=== PATIENT | male | born 1975 | race Caucasian/White ===

== ENCOUNTER → 2018-02-04 | Outpatient (CLI) | payer OTHER | END | disposition home or self-care (01) | LOC: KCIC US 12:47 | DX: H54.7 Unspecified visual loss (principal); I10 Essential (primary) hypertension; Z87.891 Personal history of nicotine dependence | CPT/HCPCS: 93880 ==

== ENCOUNTER → 2018-07-28 | Outpatient (CLI) | payer OTHER ==
--- NOTE | 2018-07-28 12:00 | RAD ---
Right ankle, 2 views, 07/28/2018: HISTORY: Ankle injury Two surgical screws are present in the calcaneus, presumably traversing a old healed fracture. There is patchy bony demineralization. Mild spurring is present at the ankle joint and at the mid foot level. No acute fracture or dislocation is identified. There is mild subcutaneous edema. IMPRESSION: 1. Previous calcaneal surgery. 2. Mild degenerative change. 3. No acute bony abnormality is detected. Lumbar spine, 3 views, 07/28/2018: HISTORY: Back pain There is a mild left convexity lumbar scoliosis. The lumbar vertebral heights are well-maintained. There is mild disc space narrowing at multiple levels with mild scattered marginal spurs. There are mild degenerative changes involving the facet joints in the lower lumbar spine. No fracture or dislocation is evident. The paraspinous soft tissues are unremarkable. IMPRESSION: 1. Mild multilevel degenerative changes. 2. Mild lumbar scoliosis. 3. No acute bony abnormality is detected. Electronically signed by: Gunner Chairez MD (07/28/2018 11:58 AM) [facility]
== END | disposition home or self-care (01) ==
LOC: RAD 09:46
PROVIDERS: ATTEND Surgery
DX: M19.071 Primary osteoarthritis, right ankle and foot (principal); M47.896 Other spondylosis, lumbar region; M41.86 Other forms of scoliosis, lumbar region; I10 Essential (primary) hypertension; Z98.890 Other specified postprocedural states; Z87.891 Personal history of nicotine dependence
CPT/HCPCS: 72100; 73600

== ENCOUNTER → 2018-08-24 | Outpatient (CLI) | payer MEDICAID, OTHER ==
--- NOTE | 2018-08-24 16:24 | KCIC ---
PA and lateral chest radiograph. History: Chronic cough. Comparison: May 08, 2016. Findings: Cardiomediastinal silhouette is within normal limits for size. Bilateral lung rivera appear clear without evidence of infiltrate, effusion, or pneumothorax. Impression: 1. No acute cardiopulmonary process. Electronically signed by: Ramón Sage MD (08/24/2018 4:21 PM) [place] [id number]
== END | disposition home or self-care (01) ==
LOC: KCIC 09:38
PROVIDERS: ATTEND Family Medicine
DX: R05 Cough (principal); I10 Essential (primary) hypertension; M19.071 Primary osteoarthritis, right ankle and foot; Z87.891 Personal history of nicotine dependence
CPT/HCPCS: 71046

== ENCOUNTER 2018-09-18 12:56 | Emergency (ER) | payer MEDICAID, OTHER ==
[~2018-09-18] VITALS: Ht 167.6 cm; Wt 127.0 kg
[2018-09-18] MEDS ORDERED: TETRACAINE 0.5% OPHTH SOLUTION 4ML BOTTLE. OD ONE (13:45)
[2018-09-18] MEDS ORDERED: FLUORESCEIN OPHTH TEST STRIP. OD ONE (13:45)
[2018-09-18] MEDS ORDERED: POLY10DR OS (14:12)
[2018-09-18] MEDS ORDERED: PRED5DRO20 OS (14:12)
--- NOTE | 2018-09-18 14:15 | PHYS DOC ---
Past Medical History Past Medical History: Hypertension Additional Past Medical Histor: CHRONIC NERVE PAIN Past Surgical History: Other Additional Past Surgical Histo: R ankle "reconstruction" in Aug 2013, R ankle nerve decompression Additional Information: PACK PER DAY Alcohol Use: None Drug Use: None Adult General Chief Complaint Chief Complaint: EYE PROBLEMS [facility] HPI Patient is a 43 year old male who presents with left eye problem. Patient states he has been having some redness and irritation of the left eye over the last 5-7 days. He denies any loss of vision. No fever or chills. He does endorse prior history of multiple episodes of random redness in irritation in the eye but he states these usually resolve spontaneously. This one lasted over the last week. Patient is otherwise healthy. He does not complain of eye pain. He does not have pain with movement of the eye. Review of Systems Review of Systems Constitutional: Denies fever Eyes: Denies change in visual acuity, redness, or eye pain HENT: Denies nasal congestion Respiratory: Denies cough or shortness of breath Cardiovascular: No additional information not addressed in HPI Neurologic: Denies headache All other systems were reviewed and found to be within normal limits, except as documented in this note. Current Medications Current Medications Current Medications Medications (Trade) Dose Ordered Sig/William Start Time Stop Time Status Last Admin Dose Admin Fluorescein Sodium (Ful-Asmmi) 2 strip 1X ONCE 09/18/18 13:45 09/18/18 13:46 DC 09/18/18 13:45 2 STRIP Tetracaine HCl (Tetracaine) 1 drop 1X ONCE 09/18/18 13:45 09/18/18 13:46 DC 09/18/18 13:45 1 DROP Allergies Allergies Allergies Coded Allergies Type Severity Reaction Last Updated Verified No Known Drug Allergies 02/16/14 No Physical Exam Physical Exam Constitutional: Well developed, well nourished, no acute distress, non-toxic appearance HENT: Normocephalic, atraumatic, bilateral external ears normal, oropharynx moist Eyes: PERRLA, EOMI and not painful, conjunctival injection Neck: Normal range of motion Cardiovascular:Heart rate regular rhythm, no murmur Lungs & Thorax: Bilateral breath sounds clear Abdomen: Bowel sounds normal, soft Skin: Warm, dry, no erythema, no rash Neurologic: Alert and oriented X 3 Psychologic: Affect normal \\ Current Patient Data Vital Signs Vital Signs Date Time Temp Pulse Resp B/P (MAP) Pulse Ox O2 Delivery O2 Flow Rate FiO2 09/18/18 13:11 97.9 88 16 154/88 (110) 99 Room Air 97.9 EKG EKG [] Radiology/Procedures Radiology/Procedures [] Course & Med Decision Making Course & Med Decision Making Pertinent Labs and Imaging studies reviewed. (See chart for details) Patient is seen and examined for 1 week of irritation and redness in the left eye. He also complains of some clear drainage. Slit lamp exam: - Lids and lacrimal ducts are normal - Conjunctiva is significantly injected as is the sclera with multiple tiny prominent blood vessels - Cornea is smooth and free from abrasion during staining exam - Anterior chamber is clear and free from cellar flare - IOP in affected eye: 19, 20 - VA: OS 20/40, OD 20/20, OU 20/40 Patient is diagnosed with episcleritis and conjunctivitis. I have pain with extraocular movements. He has no significant vision loss. Slit lamp exam as above. Plan today is for discharge home. He is placed on prednisolone acetate. He is also placed on Polytrim. He is recommended to follow-up with ophthalmology and referral information is provided to the patient. All of his questions are answered prior to discharge home. Dragon Disclaimer Dragon Disclaimer This electronic medical record was generated, in whole or in part, using a voice recognition dictation system. Departure Departure Impression: Primary Impression: Conjunctivitis Additional Impression: Episcleritis Disposition: HOME, SELF-CARE Condition: GOOD Referrals: MATT RAY MD (PCP) COLLIN EAGLE MD Patient Instructions: Conjunctivitis (Viral and Bacterial) Scripts Polymyxin B Sulf/Trimethoprim (POLYTRIM EYE DROPS) 10 Ml Drops 1 DROP OS Q4H, #10 ML Prov: FELICIA DAN DO 09/18/18 Prednisolone Acetate/Pf (Prednisolone Acet 1% Eye Drop) 5 Ml Drops.susp 1 DROP OS Q4H, #10 ML Prov: FELICIA DAN DO 09/18/18 Problem Qualifiers FELICIA DAN DO Sep 18, 2018 14:15
[2018-09-18 14:39] VITALS: BP 150/84
== END 2018-09-18 14:40 | disposition home or self-care (01) ==
LOC: ER 12:56
DX: H15.102 Unspecified episcleritis, left eye (principal); H10.9 Unspecified conjunctivitis; I10 Essential (primary) hypertension; G89.29 Other chronic pain; F17.200 Nicotine dependence, unspecified, uncomplicated
CPT/HCPCS: 99283

== ENCOUNTER → 2019-06-15 | Outpatient (CLI) | payer OTHER ==
[~2019-06-15] MED LIST: POLY10DR OS; PRED5DRO20 OS
--- NOTE | 2019-06-15 14:58 | KCIC ---
Indication:Left knee effusion and pain for 5 weeks. TECHNIQUE: 3 views of the left knee COMPARISON:None FINDINGS/ impression: No acute fracture or dislocation. Small suprapatellar effusion. No arthritic changes. Electronically signed by: Lucio Mahoney DO (06/15/2019 2:55 PM) [facility]
== END | disposition home or self-care (01) ==
LOC: KCIC 12:03
PROVIDERS: ATTEND Family Medicine
DX: M25.462 Effusion, left knee (principal)
CPT/HCPCS: 73562

== ENCOUNTER → 2019-06-22 | Outpatient (CLI) | payer OTHER ==
--- NOTE | 2019-06-22 12:47 | KCIC ---
MR of the left knee HISTORY: Acute left knee pain, swelling. Pain for about 5 weeks. Pain posterior and lateral. TECHNIQUE: Routine multiplanar sequences are obtained. FINDINGS: No evidence of a medial meniscal tear. Small radial tear at the lateral meniscus at the junction of the body and anterior horn. Anterior and posterior cruciate ligaments are intact. Medial collateral ligament is intact. Iliotibial band unremarkable. Fibular collateral ligament, biceps femoris tendon and popliteus tendon are intact. Extensor mechanism is intact. Moderate joint effusion. Articular cartilage evaluation is limited by motion degradation. There is chondromalacia at the medial femoral condyle. No acute articular cartilage defect is seen. Heterogeneous soft tissue lesion, posterior to the posterior horn the medial meniscus and the medial femoral condyle. There is some heterogeneous and nodular tissue identified just posterior to the medial meniscus, posterior cruciate ligament and medial femoral condyle measures about 2 cm long axis. Etiology is uncertain. Small soft tissue nodular structure located just anterior to the femoral metaphysis, measures about 1 cm, low-density intermediate signal on T1-weighted and T2-weighted images. Trace Dinero's cyst. IMPRESSION: 1. Small radial tear of the lateral meniscus. 2. Heterogeneous nodular structure at the posterior knee, uncertain significance. Possibilities include nodular synovitis, intra-articular hemorrhage, or fibrosis. Intra-articular mass is difficult to exclude, particularly given the motion degradation. Follow-up study with contrast could be of benefit. 3. Another smaller area of soft tissue nodularity just anterior to the lower aspect of the femoral metaphysis has a fibrotic appearance. Electronically signed by: Ramón Bales MD (06/22/2019 12:44 PM) [facility]
== END | disposition home or self-care (01) ==
LOC: KCIC MRI 09:22
PROVIDERS: ATTEND Family Medicine
DX: S83.282A Other tear of lateral meniscus, current injury, left knee, initial encounter (principal); M25.462 Effusion, left knee; M94.262 Chondromalacia, left knee; M89.8X8 Other specified disorders of bone, other site; X58.XXXA Exposure to other specified factors, initial encounter; Y93.89 Activity, other specified; Y92.89 Other specified places as the place of occurrence of the external cause; Y99.8 Other external cause status
CPT/HCPCS: 73721

== ENCOUNTER 2020-01-14 16:22 | Emergency (ER) | payer OTHER ==
[~2020-01-14] VITALS: Ht 167.6 cm; Wt 130.0 kg
[2020-01-14 16:40] LABS: BASO # 0.1 x10^3/uL (0.0-0.2); BASO % 1 % (0-3); EOS # 0.3 x10^3/uL (0.0-0.7); EOS % 2 % (0-3); HEMATOCRIT 44.8 % (39.0-53.0); LYMPH % 31 % (24-48); MEAN CORPUSCULAR HEMOGLOBIN 30 pg (25-35); MEAN CORPUSCULAR HGB CONC 33 g/dL (31-37); MEAN CORPUSCULAR VOLUME 91 fL (79-100); MONO # 0.8 x10^3/uL (0.0-1.1); MONO % 6 % (0-9); NEUT # 7.9 x10^3/uL (1.8-7.7); NEUT % 60 % (31-73); PLATELET COUNT 375 x10^3/uL (140-400); RED BLOOD COUNT 4.93 x10^6/uL (4.30-5.70); RED CELL DISTRIBUTION WIDTH 13.5 % (11.5-14.5); WHITE BLOOD COUNT 13.1 x10^3/uL (4.0-11.0)
[2020-01-14 16:49] LABS: PROTHROMBIN TIME PATIENT 12.9 SEC (11.7-14.0)
[2020-01-14 16:52] LABS: CALCIUM 8.9 mg/dL (8.5-10.1); CREATININE 0.9 mg/dL (0.7-1.3); GFR 92.5; POTASSIUM 4.1 mmol/L (3.5-5.1)
[2020-01-14 16:57] LABS: ALBUMIN 3.8 g/dL (3.4-5.0); ALBUMIN/GLOBULIN RATIO 1.1 (1.0-1.7); TOTAL BILIRUBIN 0.1 mg/dL (0.2-1.0); TOTAL PROTEIN 7.4 g/dL (6.4-8.2)
--- NOTE | 2020-01-14 17:14 | RAD ---
Exam: CT head INDICATION: TIA workup TECHNIQUE: Sequential axial images through the head were obtained without the administration of IV contrast. Comparisons: None FINDINGS: No focal parenchymal lesion or hemorrhage is identified. There is no midline shift or sulcal effacement. No acute vascular territory infarction is identified. Quiroga-white distinction is preserved. The ventricular system is within normal limits without compression hydrocephalus. The basal cisterns are well maintained. The visualized portions of the paranasal sinuses and mastoid air cells are well-pneumatized. No acute fractures. IMPRESSION: No acute intracranial abnormality. Exposure: One or more of the following in the visualized dose reduction techniques were utilized for this examination: 1. Automated exposure control 2. Adjustment of the MA and/or KV according to patient size Use of iterative of reconstructive technique Electronically signed by: Gerardo Anderson MD (01/14/2020 5:11 PM) [id number]
[2020-01-14] MEDS ORDERED: IOHEXOL 300 MG/ML 100ML VIAL. IV ONE (17:15)
[2020-01-14] MEDS ORDERED: CONTRAST GIVEN. MC PRN (17:30)
[2020-01-14] MEDS ORDERED: ASPIRIN CHEWABLE 81 MG TABLET. PO ONE (17:30)
--- NOTE | 2020-01-14 17:30 | RAD ---
Exam: Chest one view INDICATION: Cough TECHNIQUE: Under view of chest Comparisons: 08/24/2018 FINDINGS: The cardiomediastinal silhouette and pulmonary vessels are within normal limits. The lung and pleural spaces are clear. IMPRESSION: No acute cardiopulmonary process. Electronically signed by: Gerardo Anderson MD (01/14/2020 5:27 PM) [id number]
--- NOTE | 2020-01-14 17:34 | PHYS DOC ---
Past Medical History Past Medical History: Anxiety, Hypertension Additional Past Medical Histor: CHRONIC NERVE PAIN RIGHT FOOT SECONDARY TO RENETTA NSTRUCTIVE SX. (ARABELLA MEJIA MD) Past Surgical History: Other Additional Past Surgical Histo: R ankle "reconstruction" in Aug 2013, R ankle nerve decompression (ARABELLA MEJIA MD) Smoking Status: Current Every Day Smoker Alcohol Use: None Drug Use: None (ARABELLA MEJIA MD) Adult General Chief Complaint Chief Complaint: NEURO SYMPTOMS/DEFICITS HPI HPI Patient is a 44 year old male presenting with concern over possible stroke. Patient states has a history of hypertension, symptoms have currently resolved my initial evaluation the emergency room when I saw him 5 minutes after he got here. He said that over the last 30 minutes that he minutes ago he had right arm and hand numbness and some right tongue numbness that lasted 10 minutes and then went away on its own. He thought his blood sugar was low so he tried to eat something and then may be that did help somewhat he never actually checked his blood sugar however. He also noted a some spots in his vision on the left side it was blurry a little bit he did not lose his vision entirely however. He never had any numbness. Approximately 30 minutes before that he did have a short period when he was trying to talk on the phone and was hard for him to get the words out. That has also resolved completely he tells me now he is back to normal he thinks. No chest pain Medications include lisinopril and citalopram past medical history includes hypertension and anxiety patient also has diabetes. (ARABELLA MEJIA MD) Review of Systems Review of Systems Constitutional: Denies fever or chills [] Eyes: Denies change in visual acuity, redness, or eye pain [] HENT: Denies nasal congestion or sore throat [] Respiratory: Denies cough or shortness of breath [] Cardiovascular: No additional information not addressed in HPI [] GI: Denies abdominal pain, nausea, vomiting, bloody stools or diarrhea [] : Denies dysuria or hematuria [] [] All other systems were reviewed and found to be within normal limits, except as documented in this note. (ARABELLA MEJIA MD) Current Medications Current Medications Current Medications Medications (Trade) Dose Ordered Sig/William Start Time Stop Time Status Last Admin Dose Admin Aspirin (Children'S Aspirin) 324 mg 1X ONCE 01/14/20 17:30 01/14/20 17:31 DC 01/14/20 17:30 324 MG Info (CONTRAST GIVEN -- Rx MONITORING) 1 each PRN DAILY PRN 01/14/20 17:30 01/16/20 17:29 Iohexol (Omnipaque 300 Mg/ml) 75 ml 1X ONCE 01/14/20 17:15 01/14/20 17:16 DC 01/14/20 17:17 75 ML Lorazepam (Ativan Inj) 1 mg 1X ONCE 01/14/20 18:00 01/14/20 18:02 DC 01/14/20 18:07 1 MG Prochlorperazine Edisylate (Compazine) 10 mg 1X ONCE 01/14/20 17:45 01/14/20 17:51 DC 01/14/20 17:47 10 MG (PACO VILLEGAS MD) Allergies Allergies Allergies Coded Allergies Type Severity Reaction Last Updated Verified hydrochlorothiazide Allergy Severe THROAT SWELLING 01/14/20 Yes (PACO VILLEGAS MD) Physical Exam Physical Exam Constitutional: Well developed, well nourished, no acute distress, non-toxic appearance. [] HENT: Normocephalic, atraumatic, bilateral external ears normal, oropharynx moist, no oral exudates, nose normal. [] Eyes: PERRLA, EOMI, conjunctiva normal, no discharge. [] Neck: Normal range of motion, no tenderness, supple, no stridor. [] Cardiovascular:Heart rate regular rhythm, no murmur [] Lungs & Thorax: Bilateral breath sounds clear to auscultation [] Abdomen: Bowel sounds normal, soft, no tenderness, no masses, no pulsatile masses. [] Skin: Warm, dry, no erythema, no rash. [] Back: No tenderness, no CVA tenderness. [] Extremities: No tenderness, no cyanosis, no clubbing, ROM intact, no edema. [] Neurologic: Alert and oriented X 3, normal motor function, normal sensory function, no focal deficits noted. []C NIH stroke scale Psychologic: Affect normal, judgement normal, mood normal. [] (ARABELLA MEJIA MD) Current Patient Data Vital Signs Vital Signs Date Time Temp Pulse Resp B/P (MAP) Pulse Ox O2 Delivery O2 Flow Rate FiO2 01/14/20 18:51 98 20 98 Room Air 01/14/20 18:37 156/92 (113) 01/14/20 16:26 98.3 98.3 (PACO VILLEGAS MD) Lab Values Laboratory Tests Test 01/14/20 16:26 White Blood Count 13.1 x10^3/uL (4.0-11.0) H Red Blood Count 4.93 x10^6/uL (4.30-5.70) Hemoglobin 15.0 g/dL (13.0-17.5) Hematocrit 44.8 % (39.0-53.0) Mean Corpuscular Volume 91 fL (79-100) Mean Corpuscular Hemoglobin 30 pg (25-35) Mean Corpuscular Hemoglobin Concent 33 g/dL (31-37) Red Cell Distribution Width 13.5 % (11.5-14.5) Platelet Count 375 x10^3/uL (140-400) Neutrophils (%) (Auto) 60 % (31-73) Lymphocytes (%) (Auto) 31 % (24-48) Monocytes (%) (Auto) 6 % (0-9) Eosinophils (%) (Auto) 2 % (0-3) Basophils (%) (Auto) 1 % (0-3) Neutrophils # (Auto) 7.9 x10^3/uL (1.8-7.7) H Lymphocytes # (Auto) 4.0 x10^3/uL (1.0-4.8) Monocytes # (Auto) 0.8 x10^3/uL (0.0-1.1) Eosinophils # (Auto) 0.3 x10^3/uL (0.0-0.7) Basophils # (Auto) 0.1 x10^3/uL (0.0-0.2) Prothrombin Time 12.9 SEC (11.7-14.0) Prothrombin Time INR 1.0 (0.8-1.1) Sodium Level 137 mmol/L (136-145) Potassium Level 4.1 mmol/L (3.5-5.1) Chloride Level 99 mmol/L (98-107) Carbon Dioxide Level 26 mmol/L (21-32) Anion Gap 12 (6-14) Blood Urea Nitrogen 11 mg/dL (8-26) Creatinine 0.9 mg/dL (0.7-1.3) Estimated GFR (Cockcroft-Gault) 92.5 BUN/Creatinine Ratio 12 (6-20) Glucose Level 141 mg/dL (70-99) H Calcium Level 8.9 mg/dL (8.5-10.1) Total Bilirubin 0.1 mg/dL (0.2-1.0) L Aspartate Amino Transferase (AST) 23 U/L (15-37) Alanine Aminotransferase (ALT) 38 U/L (16-63) Alkaline Phosphatase 104 U/L (46-116) Troponin I Quantitative < 0.017 ng/mL (0.000-0.055) Total Protein 7.4 g/dL (6.4-8.2) Albumin 3.8 g/dL (3.4-5.0) Albumin/Globulin Ratio 1.1 (1.0-1.7) Ethyl Alcohol Level < 10 mg/dL (0-10) Laboratory Tests 01/14/20 16:26 Laboratory Tests 01/14/20 16:26 (PACO VILLEGAS MD) EKG EKG []EKG shows a normal sinus rhythm with a rate of 93 no acute ischemic changes noted interpreted by me the time of encounter (ARABELLA MEJIA MD) Radiology/Procedures Radiology/Procedures []cta carotid neg. (ARABELLA MEJIA MD) Radiology/Procedures [facility] [address] [place] [address] IMAGING REPORT Signed PATIENT: AUSTYN BULL ACCOUNT: [id number] : 1975 LOCATION: ER AGE: 44 SEX: M EXAM STATUS: REG ER ORD. PHYSICIAN: ARABELLA MEJIA MD REASON: stat mri r/o cva. last normal 1714,CALL REPORT TO ER [phone] PROCEDURE: BRAIN W/O CONTRAST Exam: MRI brain without IV contrast CLINICAL HISTORY: TIA workup, right upper arm weakness, paresthesias COMPARISON: None available. TECHNIQUE: Multiplanar, multisequence MR imaging of the brain was performed without IV contrast.. FINDINGS: There is no evidence of intracranial hemorrhage, mass or edema. There is no signal abnormality on the T2 and Flair images. There is no restricted diffusion to suggest acute ischemia. The ventricles and basilar cisterns are normal in size and configuration for the patients age. There is no evidence of mass effect or shift of the midline structures. Posterior fossa structures including the cerebellum and brainstem are unremarkable. Limited imaging of the orbits demonstrates no orbital abnormality. There are normal flow voids in the arteries at the level of the [place]. IMPRESSION: No evidence for acute intracranial process. Specifically no evidence for ischemia/infarct. Findings discussed with Dr. Villegas at 01/14/2020 7:37 PM. FOR INTERNAL CODING PURPOSES RESULT CODE: (C) Electronically signed by: Adrián Denton MD (01/14/2020 7:38 PM) [id number] DICTATED and SIGNED BY: ADRIÁN DENTON MD DATE: 01/14/201937 (PACO VILLEGAS MD) Impressions: IMPRESSION: No acute intracranial abnormality. Exposure: One or more of the following in the visualized dose reduction techniques were utilized for this examination: 1. Automated exposure control 2. Adjustment of the MA and/or KV according to patient size Use of iterative of reconstructive technique Electronically signed by: Gerardo Wade MD (01/14/2020 5:11 PM) [id number] DICTATED and SIGNED BY: GERARDO WADE MD DATE: 01/14/201710 (ARABELLA MEJIA MD) Course & Med Decision Making Course & Med Decision Making Pertinent Labs and Imaging studies reviewed. (See chart for details) summary this is a 44-year-old male with a likely TIA or strokes on arrival was a 0 []abcd2 score is a 4. ct head neg. cta neg On reevaluation at 5:30 PM when patient came back from CT scanner. (of note edward RN states last normal was 1715, I last saw patient at approximately 445 pm), at 5:30 PM patient states that he just wasn't feeling right he appeared to be quite anxious Edward nurse had noted that he was hyperventilating in just a few minutes prior to this nevertheless he said that he was having trouble reading some of the words on the signs in the emergency department room. He says he is very worried this is just not sure what's going on. When I reevaluated his stroke scale. He had a stroke scale now over to gave him one for expressive aphasia he was unable to say all of the names of the pictures on the stroke page. For example he could say glove but he could not say chair and he said irresponsible when pointing to the hammock Then he would say in very clear speech "I don't know which one with me" He did have some decreased sensation to light touch over the left fourth and fifth fingers but the right side which was his initial complaint at home was normal on the repeat scale. I spoke with Dr. varghese from neurology at 5:50 PM recommendation for stat MRI given a recent last seen normal and the possibility clinically of a posterior fossa CVA given the tongue involvement initially. I talked to the patient and the family in detail about the risks and benefits of a possible TPA versus the risk and benefits of a delay to get a definitive test family the cousin and the father do say the patient has frequent anxiety and they think he just looks anxious most likely. I tend to agree but stroke is on the differential so we will do a stat MRI. We did talk in detail about the risk and benefits of TPA including risk of bleeding and versus risk of missed stroke and worsening condition after specialty consultation and discussion with the family the current plan is for a stat MRI. I did sign out with Dr. Cade at 6:15 PM with the plan to reevaluate the patient get a stat MRI last seen normal 1715 consideration of TPA after that time depending on results of MRI. Dr. varghese did say would be very reluctant very very reluctant to give TPA for a cerebellar infarct. I have asked Dr. Cade to follow-up with Dr. varghese for any abnormal results on the MRI. (ARABELLA MEJIA MD) Course & Med Decision Making MRI negative for acute process. Discussed case with Dr. VARGHESE, she agrees this is likely more anxiety however observation could be considered. She recommended aspirin 325 mg daily. Patient and family at bedside with discussion of results. Patient would like to discharge home. He would prefer follow-up with his primary care physician and workup as an outpatient given negative MRI. She'll be discharged home. (PACO VILLEGAS MD) Dragon Disclaimer Dragon Disclaimer This electronic medical record was generated, in whole or in part, using a voice recognition dictation system. (ARABELLA MEJIA MD) Departure Departure Impression: Primary Impression: TIA (transient ischemic attack) Additional Impression: Anxiety Disposition: 01 HOME, SELF-CARE Condition: STABLE Referrals: MATT RAY MD (PCP) Patient Instructions: Anxiety and Panic Attacks, [id number] Additional Instructions: Neurologic workup negative acute CVA/Hemorrhage Discussed findings with family/patient at bedside Recommend ASA 325mg po daily Recommend follow up with PCP and further workup as outpatient Patient requested dc home and follow up as outpatient NIHSS Stroke Scale NIH Stroke Scale: NIH Stroke Scale Response (Comments) Value Level of Consciousness: 0 Alert/Responsive 0 LOC Questions: 0 Answers both correctly 0 LOC Commands: 0 Performs both tasks 0 Best Gaze: 0 Normal 0 Visual: 0 No visual loss 0 Facial Palsy: 0 Normal, symmetrical 0 Motor - Left Arm 0 No drift 0 Motor - Right Arm 0 No drift 0 Motor - Left Leg 0 No drift 0 Motor: Right Leg 0 No drift 0 Limb Ataxia: 0 Absent 0 Sensory: 0 No loss 0 Best Language: 0 Normal 0 Dysathria: 0 Normal 0 Extinction and Inattention: 0 Normal 0 Total 0 Problem Qualifiers ARABELLA MEJIA MD Jan 14, 2020 17:34 PACO VILLEGAS MD Jan 14, 2020 20:00
--- NOTE | 2020-01-14 17:42 | RAD ---
Examination: CT ANGIOGRAPHY HEAD AND NECK History: Right upper atrium. Paresthesias. Comparison/Correlation: CT head without contrast January 14, 2020 FINDINGS: Axial images of the head and neck were obtained following IV contrast, 2 arteriography protocol. Sagittal and coronal reformatted images were provided. Maximum intensity projection images were provided. Volume rendered images were provided. Motion limits evaluation of multiple images. Angiographic findings: The aortic arch has a typical branching pattern. There is no arch vessel stenosis. Both common carotid arteries are patent without stenosis. Both internal carotid arteries are patent without stenosis. The external carotid systems are patent. The vertebral arteries are patent. Left vertebral artery is relatively smaller and does not join with the right vertebral artery to form the basilar artery. The basilar artery is patent. Both posterior cerebral arteries are patent. The posterior communicating arteries are visualized. The intracranial internal carotid arteries demonstrate no stenosis. The middle cerebral arteries are patent. The anterior cerebral arteries are patent. The anterior communicating artery is visualized. Nonangiographic findings: There is no intracranial hemorrhage. Quiroga-white differentiation is preserved. The ventricles are normal in size and position. The paranasal sinuses appear clear. The orbits are unremarkable. The temporal bones are unremarkable. Bone windows reveal no suspicious lesions. The lung apices demonstrate no acute abnormality. Multilevel degenerative space narrowing of the cervical spine is evident. Impacted right lower third molar is evident. Neural foraminal narrowing is present at the upper thoracic spine. The parotid glands and submandibular glands are unremarkable. The thyroid gland demonstrates no suspicious lesions. There are no laryngeal or pharyngeal masses. There are no pathologically enlarged lymph nodes. IMPRESSION: There is bilateral vasculature is widely patent without atheromatous involvement identified on this exam which is limited due to motion. No significant stenosis. No dissection or aneurysm. Discussed with the referring emergency room physician on 01/14/2020 at 5:26 PM. PQRS Compliance Statement - Stenosis calculations for CT, MR and conventional angiography are based upon measurement of the distal ICA diameter in accordance with the NASCET methodology. Stenosis calculations for carotid ultrasound studies are derived from validated velocity criteria which are known to correlate with the NASCET methodology. *One or more of the following individualized dose reduction techniques were utilized for this examination: 1. Automated exposure control. 2. Adjustment of the mA and/or kV according to patient size. 3. Use of iterative reconstruction technique. Electronically signed by: King Torres MD (01/14/2020 5:39 PM) [id number]
[2020-01-14] MEDS ORDERED: PROCHLORPERAZINE 10 MG/2 ML VIAL. IV ONE (17:45)
--- NOTE | 2020-01-14 19:41 | RAD ---
Exam: MRI brain without IV contrast CLINICAL HISTORY: TIA workup, right upper arm weakness, paresthesias COMPARISON: None available. TECHNIQUE: Multiplanar, multisequence MR imaging of the brain was performed without IV contrast.. FINDINGS: There is no evidence of intracranial hemorrhage, mass or edema. There is no signal abnormality on the T2 and Flair images. There is no restricted diffusion to suggest acute ischemia. The ventricles and basilar cisterns are normal in size and configuration for the patients age. There is no evidence of mass effect or shift of the midline structures. Posterior fossa structures including the cerebellum and brainstem are unremarkable. Limited imaging of the orbits demonstrates no orbital abnormality. There are normal flow voids in the arteries at the level of the [place]. IMPRESSION: No evidence for acute intracranial process. Specifically no evidence for ischemia/infarct. Findings discussed with Dr. Campos at 01/14/2020 7:37 PM. FOR INTERNAL CODING PURPOSES RESULT CODE: (C) Electronically signed by: Adrián Wilks MD (01/14/2020 7:38 PM) [id number]
[2020-01-14 20:03] VITALS: BP 163/104
--- NOTE | 2020-01-14 23:34 | EKG ---
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
== END 2020-01-14 20:15 | disposition home or self-care (01) ==
LOC: ER 16:22
DX: G45.9 Transient cerebral ischemic attack, unspecified (principal); F41.9 Anxiety disorder, unspecified; I10 Essential (primary) hypertension; F17.200 Nicotine dependence, unspecified, uncomplicated; Z88.8 Allergy status to other drugs, medicaments and biological substances
CPT/HCPCS: 36415; 70450; 70496; 70498; 70551; 71045; 80053; 82962; 84484; 85025; 85610; 93005; 96374; 96375; 96376; 99285; G0480; J0780; J2060; Q9967

== ENCOUNTER 2021-10-07 03:47 | Emergency (ER) | payer OTHER ==
[~2021-10-07] VITALS: Ht 167.6 cm; Wt 122.7 kg
--- NOTE | 2021-10-07 04:29 | PHYS DOC ---
Past Medical History Past Medical History: Anxiety, Hypertension Additional Past Medical Histor: CHRONIC NERVE PAIN RIGHT FOOT SECONDARY TO RECONSTRUCTIVE SX, PANIC ATTACKS Past Surgical History: Other Additional Past Surgical Histo: R ankle "reconstruction" in Aug 2013, R ankle nerve decompression Smoking Status: Current Every Day Smoker Alcohol Use: None Drug Use: None General Adult EDM: Chief Complaint: Palpitations HPI: HPI: Patient is a 46 year old patient with past medical history of hypertension, panic attacks, asthma suppressive presenting today with palpitations that started around 2 PM yesterday. Patient states the palpitations come and go. It feels like his heart skips a beat. Patient denies any chest pain or shortness of breath. Patient is never seen cardiology and has not seen his primary care for this issue. Patient states that he did recently increase his dose of citalopram for his anxiety. Patient denies any nausea, vomiting, syncope, numbness, tingling, change in vision. Patient states he is also been taking his blood pressure and heart rate at home and states that his while his blood pressure has been good his heart rate has been in the 90s. Patient is attempted to cut down on his tobacco use and current consumption of soda. However, this does not help. Review of Systems: Review of Systems: Constitutional: Denies fever or chills Eyes: Denies redness or eye pain HENT: Denies nasal congestion or sore throat Respiratory: Denies cough or shortness of breath Cardiovascular: Denies chest pain but endorses palpitations GI: Denies abdominal pain, nausea, or vomiting : Denies dysuria or hematuria Musculoskeletal: Denies back pain or joint pain Integument: Denies rash or skin lesions Neurologic: Denies headache, focal weakness or sensory changes Complete systems were reviewed and found to be within normal limits, except as documented in this note. Heart Score: C/O Chest Pain: No Allergies: Allergies: Allergies Coded Allergies Type Severity Reaction Last Updated Verified hydrochlorothiazide Allergy Severe THROAT SWELLING 01/14/20 Yes Physical Exam: PE: Constitutional: Well developed, well nourished, no acute distress, non-toxic appearance HENT: Normocephalic, atraumatic Eyes: PERRL, EOMI, conjunctiva normal, no discharge Neck: Normal range of motion, no tenderness, supple Lungs & Thorax: No respiratory distress, equal chest rise and fall Cardiac: Heart regular rate and rhythm with occasional PVCs noted while looking at monitor and listening to the heart, no murmurs or rubs Abdomen: Soft, no tenderness Skin: Warm, dry, no erythema, no rash Back: No tenderness, no CVA tenderness Extremities: No tenderness, ROM intact, no edema Neurologic: Alert and oriented X 3, normal motor function, normal sensory function, no focal deficits noted Psychologic: Affect normal, judgment normal Current Patient Data: Vital Signs: Vital Signs Date Time Temp Pulse Resp B/P (MAP) Pulse Ox O2 Delivery O2 Flow Rate FiO2 10/07/21 03:49 98.4 104 21 133/77 (95) 98 Room Air 98.4 EKG: EK: Sinus tachycardia with a rate of 105, normal axis, no significant ST changes, no T wave inversions, NE 126 ms, QRS 84 ms, QT/QTc 344/459 ms Course & Med Decision Making: Course & Med Decision Making 46-year-old male patient with past medical history of hypertension, panic attacks, asthma presenting today with palpitations that started around 2 PM yesterday. She denies any chest pain or shortness of breath. Patient states that his palpitations do come and go. While auscultating the patient's heart and looking at the monitor, it does appear that the patient is having occasional PVCs. He acknowledges that this is the palpitations that he is feeling. It is likely that these PVCs are occurring due to increased stress. ECG showed sinus tachycardia at a rate of 105. Dragon Disclaimer: Dragon Disclaimer: This electronic medical record was generated, in whole or in part, using a voice recognition dictation system. Departure Departure Impression: Primary Impression: Palpitations Disposition: HOME / SELF CARE / HOMELESS Condition: STABLE Referrals: MATT RAY MD (PCP) GAGANDEEP CANTRELL MD Patient Instructions: Palpitations, [id number], Premature Ventricular Contraction POOJA DE LA CRUZ DO Oct 07, 2021 04:29
[2021-10-07 04:41] LABS: BASO # 0.1 x10^3/uL (0.0-0.2); BASO % 1 % (0-3); EOS # 0.2 x10^3/uL (0.0-0.7); EOS % 2 % (0-3); HEMOGLOBIN 14.6 g/dL (13.0-17.5); LYMPH % 35 % (24-48); MEAN CORPUSCULAR HEMOGLOBIN 30 pg (25-35); MEAN CORPUSCULAR HGB CONC 34 g/dL (31-37); MEAN CORPUSCULAR VOLUME 89 fL (79-100); MONO # 1.1 x10^3/uL (0.0-1.1); MONO % 10 % (0-9); NEUT # 6.2 x10^3/uL (1.8-7.7); NEUT % 53 % (31-73); PLATELET COUNT 325 x10^3/uL (140-400); RED BLOOD COUNT 4.82 x10^6/uL (4.30-5.70); RED CELL DISTRIBUTION WIDTH 13.4 % (11.5-14.5); WHITE BLOOD COUNT 11.7 x10^3/uL (4.0-11.0)
--- NOTE | 2021-10-07 04:41 | EKG ---
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
[2021-10-07 04:51] LABS: CALCIUM 8.4 mg/dL (8.5-10.1); GFR 81.2; POTASSIUM 3.8 mmol/L (3.5-5.1)
[2021-10-07 04:59] LABS: ALBUMIN 3.4 g/dL (3.4-5.0); ALBUMIN/GLOBULIN RATIO 0.9 (1.0-1.7); MAGNESIUM 2.2 mg/dL (1.8-2.4); TOTAL BILIRUBIN 0.1 mg/dL (0.2-1.0); TOTAL PROTEIN 7.1 g/dL (6.4-8.2)
[2021-10-07] MEDS ORDERED: IV NORMAL SALINE 1000ML BAG 1,000 ML IV SCH (05:00)
[2021-10-07 05:07] LABS: CREATINE KINASE 65 U/L (39-308)
[2021-10-07 05:12] LABS: FREE T4 1.1 ng/dL (0.76-1.46); THYROID STIM HORMONE (TSH) 1.778 uIU/mL (0.358-3.74)
[2021-10-07 05:55] VITALS: BP 127/62
== END 2021-10-07 06:09 | disposition home or self-care (01) ==
LOC: ER 03:47
DX: R00.2 Palpitations (principal); I10 Essential (primary) hypertension; G89.29 Other chronic pain; F41.9 Anxiety disorder, unspecified; F17.200 Nicotine dependence, unspecified, uncomplicated; Z88.8 Allergy status to other drugs, medicaments and biological substances
CPT/HCPCS: 36415; 80053; 82553; 83690; 83735; 84439; 84443; 84484; 85025; 93005; 96360; 96361; 99285; J7030